=== PATIENT | female | born 1980 | race African-American/Black ===

== ENCOUNTER 2016-11-30 21:13 | Emergency (ER) | payer BC, MEDICAID ==
[2016-11-30] MEDS ORDERED: ASPIRIN 81 MG TABLET, CHEWABLE PO ONE (21:38)
--- NOTE | 2016-11-30 21:39 | ER Document Report ---
ED Medical Screen (RME) - General Chief Complaint: Eye Problem Stated Complaint: BLOOD PRESSURE ISSUE/EYE IRRITATION Time seen by provider: 21:38 Mode of Arrival: Ambulatory Information source: Patient Notes: 36-year-old female with a mild headache that started last night. She continued to have the headache this morning but she went to work. A coworker at noon told her her eye was red and she noticed a left subcondylar conjunctival hemorrhage. She also thinks that the symptoms are due to high blood pressure she ran out of her medicine. She has retrosternal chest heaviness that has been constant since 7 PM. - Related Data Allergies/Adverse Reactions: acetaminophen [From Vicodin] Allergy (Verified 11/30/16 21:42) hydrocodone [From Vicodin] Allergy (Verified 11/30/16 21:42) oxycodone [From Percocet] Allergy (Verified 11/30/16 21:42) Past Medical History Past Surgical History: Reports: Hx Cholecystectomy Physical Exam - Vital signs Vitals: Temp Pulse Resp BP Pulse Ox 98.1 F 100 16 150/109 H 100 11/30/16 21:32 11/30/16 21:32 11/30/16 21:32 11/30/16 21:32 11/30/16 21:32 Course - Vital Signs Vital signs: Temp Pulse Resp BP Pulse Ox 98.1 F 107 H 16 151/103 H 100 11/30/16 21:32 11/30/16 21:33 11/30/16 21:32 11/30/16 21:33 11/30/16 21:32
[2016-11-30 22:29] LABS: ABSOLUTE EOSINOPHILS # (AUTO) 0.1 10^3/uL (0.0-0.6); ABSOLUTE LYMPHOCYTES (AUTO) 2.9 10^3/uL (0.5-4.7); ABSOLUTE MONOCYTES (AUTO) 0.7 10^3/uL (0.1-1.4); ABSOLUTE NEUT (AUTO) 4.2 10^3/uL (1.7-8.2); BASOPHILS % (AUTO) 0.6 % (0-2); EOSINOPHILS % (AUTO) 0.9 % (0-6); HEMATOCRIT 41.3 % (36.0-47.0); HEMOGLOBIN 13.6 g/dL (12.0-15.5); HGB HCT DIFFERENCE -0.5; LYMPHOCYTES % (AUTO) 36.7 % (13-45); MEAN CORPUSCULAR HEMOGLOBIN 26.7 pg (27.0-33.4); MEAN CORPUSCULAR HGB CONC 32.9 g/dL (32.0-36.0); MEAN CORPUSCULAR VOLUME 81 fl (80-97); MONOCYTES % (AUTO) 8.7 % (3-13); RED BLOOD COUNT 5.08 10^6/uL (3.72-5.28); SEGMENTED NEUTROPHILS % (AUTO) 53.1 % (42-78); WHITE BLOOD COUNT 7.9 10^3/uL (4.0-10.5)
[2016-11-30 22:40] LABS: ALANINE AMINOTRANSFERASE 34 U/L (9-52); ALBUMIN 4.6 g/dL (3.5-5.0); ALKALINE PHOSPHATASE 85 U/L (38-126); ANION GAP 12 (5-19); ASPARTATE AMINO TRANSFERASE 27 U/L (14-36); BILIRUBIN,TOTAL 0.6 mg/dL (0.2-1.3); BLOOD UREA NITROGEN 6 mg/dL (7-20); CALCIUM 10.3 mg/dL (8.4-10.2); CARBON DIOXIDE 32 mmol/L (22-30); CHLORIDE 94 mmol/L (98-107); CREATINE KINASE 107 U/L (30-135); CREATININE RESULT 0.57 mg/dL (0.52-1.25); GLUCOSE 221 mg/dL (75-110); POTASSIUM 3.7 mmol/L (3.6-5.0); SODIUM 138.4 mmol/L (137-145); TOTAL PROTEIN 7.6 g/dL (6.3-8.2)
[2016-11-30 22:54] LABS: CREATINE KINASE MB 0.25 ng/mL (<4.55)
[2016-11-30 22:55] LABS: TROPONIN I < 0.012 ng/mL
[2016-12-01] MEDS ORDERED: NORMAL SALINE 1000 ML 1,000 ML IV PRN (01:03)
--- NOTE | 2016-12-01 01:11 | ER Document Report ---
ED Blood Pressure Problem - General Chief Complaint: High Blood Pressure Stated Complaint: BLOOD PRESSURE ISSUE/EYE IRRITATION Time seen by provider: 01:03 Mode of Arrival: Ambulatory Information source: Patient TRAVEL OUTSIDE OF THE [place] IN LAST 30 DAYS: No - HPI Patient complains to provider of: High blood pressure Onset: Yesterday Onset/Duration: Gradual, Persistent, Worse Quality of pain: Achy Severity: Moderate Pain Level: 3 Problem is: Chronic problem Pt currently taking medication for problem: Yes - but ran out 3 days ago Associated symptoms: Chest pain, Headache Similar symptoms previously: No Recently seen / treated by doctor: Yes Notes: 36-year-old female presents to the emergency room for complaints of high blood pressure, redness to the left eye, headache, chest heaviness, symptoms started over the last 2 days, she reports she ran out of her blood pressure medication which was hydrochlorothiazide 25 mg daily a proximally 3 days ago, she reports feeling tired, denies any shortness of breath, no history of similar symptoms previously, she does report her symptoms have improved since being in the emergency room, pain is a heaviness across the top of the chest, no aggravating or alleviating factors - Related Data Allergies/Adverse Reactions: acetaminophen [From Vicodin] Allergy (Verified 11/30/16 21:42) hydrocodone [From Vicodin] Allergy (Verified 11/30/16 21:42) oxycodone [From Percocet] Allergy (Verified 11/30/16 21:42) Past Medical History - General Information source: Patient - Social History Smoking Status: Never Smoker Family History: Reviewed & Not Pertinent Patient has suicidal ideation: No Patient has homicidal ideation: No Past Surgical History: Reports: Hx Cholecystectomy Review of Systems - Review of Systems Constitutional: No symptoms reported EENT: See HPI Cardiovascular: See HPI Respiratory: No symptoms reported Gastrointestinal: No symptoms reported Genitourinary: No symptoms reported Female Genitourinary: No symptoms reported Musculoskeletal: No symptoms reported Skin: No symptoms reported Hematologic/Lymphatic: No symptoms reported Neurological/Psychological: Headaches Physical Exam - Vital signs Vitals: Temp Pulse Resp BP Pulse Ox 98.1 F 100 16 150/109 H 100 11/30/16 21:32 11/30/16 21:32 11/30/16 21:32 11/30/16 21:32 11/30/16 21:32 Interpretation: Hypertensive - General General appearance: Appears well, Alert In distress: None - HEENT Head: Normocephalic, Atraumatic Eyes: Normal Conjunctiva: Other - Conjunctival hemorrhage on the left Pupils: PERRL - Respiratory Respiratory status: No respiratory distress Chest status: Nontender Breath sounds: Normal Chest palpation: Normal - Cardiovascular Rhythm: Regular Heart sounds: Normal auscultation Murmur: No - Abdominal Inspection: Obese Distension: No distension Bowel sounds: Normal Tenderness: Nontender Organomegaly: No organomegaly - Back Back: Normal, Nontender - Extremities General upper extremity: Normal inspection, Nontender, Normal color, Normal ROM , Normal temperature General lower extremity: Normal inspection, Nontender, Normal color, Normal ROM , Normal temperature, Normal weight bearing. No: Jenna's sign - Neurological Neuro grossly intact: Yes Cognition: Normal Orientation: AAOx4 [place] Coma Scale Eye Opening: Spontaneous [place] Coma Scale Verbal: Oriented [place] Coma Scale Motor: Obeys Commands [place] Coma Scale Total: 15 Speech: Normal Motor strength normal: LUE, RUE, LLE, RLE Sensory: Normal - Psychological Associated symptoms: Normal affect, Normal mood - Skin Skin Temperature: Warm Skin Moisture: Dry Skin Color: Normal Course - Re-evaluation Re-evalutation: 12/01/16 02:23 Patient resting comfortably and reports feeling much better, vital signs are improved with a blood pressure 128/84, laboratory and imaging findings were discussed with patient at bedside which are unremarkable except for a blood glucose of 221, since patient ran out of her medications recently she will be provided with a prescription for both hydrochlorothiazide and she will be started on metformin as well, she was advised for lifestyle changes including diet and exercise, follow up with a primary care provider within the next week or return if symptoms worsen, patient acknowledges understanding and agreement with this - Vital Signs Vital signs: Temp Pulse Resp BP Pulse Ox 98.1 F 107 H 16 151/103 H 100 11/30/16 21:32 11/30/16 21:33 11/30/16 21:32 11/30/16 21:33 11/30/16 21:32 - Laboratory Result Diagrams: 11/30/16 22:05 11/30/16 22:05 Laboratory results interpreted by me: 11/30/16 11/30/16 22:05 22:05 MCH 26.7 L Chloride 94 L Carbon Dioxide 32 H BUN 6 L Glucose 221 H Calcium 10.3 H - Diagnostic Test Radiology reviewed: Image reviewed, Reports reviewed - EKG Interpretation by Me EKG shows normal: Sinus rhythm Rate: Normal Rhythm: NSR When compared to previous EKG there are: No significant change Discharge - Discharge Clinical Impression: Hyperglycemia Hypertension Qualifiers: Hypertension type: essential hypertension Qualified Code(s): I10 - Essential ( primary) hypertension Diabetes Qualifiers: Diabetes mellitus type: type 2 Diabetes mellitus complication status: without complication Diabetes mellitus mcc insulin use: without ferry terminal agent use Qualified Code(s): E11.9 - Type 2 diabetes mellitus without complications Condition: Stable Disposition: HOME, SELF-CARE Instructions: High Blood Pressure, Requiring Treatment ([facility]), High Blood Pressure ([facility]), Hydrochlorothiazide ([facility]), Hyperglycemia ([facility]), Diabetes ([facility]) Additional Instructions: Follow up with your primary care provider in one to 2 days. Return to the emergency room immediately if symptoms worsen or any additional concerns. Lifestyle changes such as improve diet and daily exercise can decrease complications related to hypertension and diabetes and also decrease the need for medication. Prescriptions: Hydrochlorothiazide [Hydrodiuril 25 mg Tablet] 25 mg PO QAM #30 tablet Metformin HCl 500 mg PO BID #60 tablet Forms: Return to Work
[2016-12-01 02:20] LABS: CREATINE KINASE MB < 0.22 ng/mL (<4.55); TROPONIN I < 0.012 ng/mL
[2016-12-01 02:35] VITALS: BP 126/85
--- NOTE | 2016-12-01 13:37 | EKG REPORT ---
SEVERITY:- ABNORMAL ECG - SINUS RHYTHM PROBABLE LEFT ATRIAL ABNORMALITY PROBABLE LEFT VENTRICULAR HYPERTROPHY : Confirmed by: Denice Oliver MD 01-Dec-2016 13:37:22
== END 2016-12-01 02:43 | disposition home or self-care (01) ==
LOC: ER 21:13
DX: I10 Essential (primary) hypertension (principal); E11.65 Type 2 diabetes mellitus with hyperglycemia; R51 Headache; R53.83 Other fatigue; R07.89 Other chest pain; H11.32 Conjunctival hemorrhage, left eye; Z88.5 Allergy status to narcotic agent
CPT/HCPCS: 36415; 71010; 80053; 82550; 82553; 84484; 85025; 93005; 93010; 99284